=== PATIENT | female | born 1960 | race Caucasian/White ===

== ENCOUNTER → 2017-10-05 | Outpatient (CLI) | payer SELFPAY ==
[~2017-10-05] VITALS: Ht 167.6 cm; Wt 88.5 kg
[~2017-10-05] MED LIST: ARIP5TAB12 PO; ASPI-808 PO; ATOR40TA70 PO; CALC600T12 PO; CETI10TA20 PO; CYAN-23 PO; LORA1TAB PO; MULT-35 PO; OMEP40CA36 PO; VORT10TA PO
== END ==
LOC: PREOP 09:52
PROVIDERS: ATTEND Surgery
DX: Z01.818 Encounter for other preprocedural examination (principal); Z12.11 Encounter for screening for malignant neoplasm of colon

== ENCOUNTER 2017-10-12 09:29 | Day surgery (SDC) | payer BC ==
[~2017-10-12] VITALS: Ht 167.6 cm; Wt 88.5 kg
[2017-10-12] MEDS ORDERED: PROPOFOL INJECTION 50 ML IV ONE (09:33)
[2017-10-12] MEDS ORDERED: MIDAZOLAM 2 MG/2 ML (VERSED) VIAL ONE (09:33)
--- OUTSIDE RECORDS SUMMARY | 2017-10-12 09:33 | XMS REPORT ---
Author Author CLAYTON MACIEL [facility] DENTAL Address Unknown Care Team Providers Care Proofing Machine Operator Name Role Phone CLAYTON MACIEL Unavailable PROBLEMS Type Condition ICD9-CM Code [id number] Code Onset Dates Condition Status SNOMED Code Problem Major depressive disorder, recurrent, severe without psychotic features F33.2 Active 87415068 Problem Anxiety F41.9 Active 41621941 Problem Vitamin D deficiency E55.9 Active 78366072 Problem Iron deficiency anemia, unspecified iron deficiency D50.9 Active 09845672 Problem Gastroesophageal reflux disease, esophagitis presence not specified K21.9 Active 640737073 Problem Heel spur, right M77.31 Active 89282353 Problem Chronic prescription benzodiazepine use Z79.899 Active 519550862 Problem Mixed hyperlipidemia E78.2 Active 006138771 Problem Prediabetes R73.09 Active 2592251 Problem Primary osteoarthritis involving multiple joints M15.0 Active 664035315 Problem Menopause syndrome N95.1 Active 031829302 ALLERGIES Substance Reaction Event Type Date Status Sulfamethoxazole-Trimethoprim Unknown Drug Allergy Sep, Active SOCIAL HISTORY Never Assessed PLAN OF CARE Activity Details Follow Up 6 Months Reason:SELENA VITAL SIGNS Blood pressure systolic 123 mmHg 2016-10-01 Blood pressure diastolic 81 mmHg 2016-10-01 MEDICATIONS Medication Instructions Dosage Frequency Start Date End Date Duration Status Lorazepam 1 MG Orally 3 times a day 1 tablet as needed 8h Aug, 28 days Active Omeprazole 40 mg Orally Once a day 1 capsule 24h 90 days Active Orphenadrine Citrate Active Calcium 500 MG Orally Twice a day 1 tablet 12h Feb, Active Vitamin D3 1000 UNIT Orally 2 times a day 1 tablet 12h Active Trazodone HCl 100 MG TAKE ONE TABLET BY MOUTH AT BEDTIME 90 Active Aspirin 325 MG Orally Once a day 1 tablet 24h Active RESULTS No Results PROCEDURES Procedure Date Ordered Result Body Site COMP ORAL EVALUATION - NEW/EST PT Oct 01, 2016 IMMUNIZATIONS No Known Immunizations MEDICAL (GENERAL) HISTORY Type Description Date Medical History Hypertension Medical History IBS Medical History Arthritis Medical History Degenerative Disk Disease Medical History Depression Medical History Anxiety Medical History Anemia Surgical History carpal tunnel Surgical History gallbladder Surgical History hysterectomy -full Surgical History b union_ surgery both feet Surgical History shoulder surgery Hospitalization History Surgery(s) only
--- OUTSIDE RECORDS SUMMARY | 2017-10-12 09:33 | XMS REPORT ---
Author CLAYTON Reid eClinicalWorks Address Unknown Phone Unavailable Care Team Providers Care Airplane Navigator Name Role Phone CLAYTON MACIEL CP Unavailable Allergies, Adverse Reactions, Alerts Substance Reaction Event Type Sulfamethoxazole-Trimethoprim Info Not Available Drug Allergy Problems Problem Type Condition Code Onset Dates Condition Status Problem Prediabetes R73.09 Active Assessment Dental examination Z01.20 Active Problem Anxiety F41.9 Active Problem Major depressive disorder, recurrent, severe without psychotic features F33.2 Active Problem Mixed hyperlipidemia E78.2 Active Problem Gastroesophageal reflux disease, esophagitis presence not specified K21.9 Active Problem Iron deficiency anemia, unspecified iron deficiency D50.9 Active Problem Vitamin D deficiency E55.9 Active Problem Menopause syndrome N95.1 Active Medications Medication Code System Code Instructions Start Date End Date Status Dosage Omeprazole [facility] 12240729265 40 MG Orally 2 times a day before meal 1 capsule Calcium [facility] [address]-12 February 15, 2014 not defined Aspirin [facility] [address]-06 325 MG Orally Once a day 1 tablet Lorazepam [facility] [address]-28 1 MG October 10, 2014 take 1 tablet by Oral route 2 times per day PRN cetirizine [facility] [address]-66 10 mg Apr 24, 2014 1 tablet by Oral route 1 daily Vitamin D3 [facility] 30299033781 1000 UNIT TAKE TWO TABLETS BY MOUTH ONCE DAILY Multivitamin [facility] 94456-[address]53 October 17, 2014 1 tablet by Oral route 1 time per day Trazodone HCl [facility] 04094244459 100 MG TAKE ONE TABLET BY MOUTH AT BEDTIME Procedures Procedure Coding System Code Date PERIODIC ORAL EXAMINATION CPT-4 D0120 Sep 04, 2015 Vital Signs Date/Time: Sep 04, 2015 Blood Pressure Diastolic 68 mmHg Blood Pressure Systolic 112 mmHg Results No Known Results Summary Purpose eClinicalWorks Submission
--- OUTSIDE RECORDS SUMMARY | 2017-10-12 09:33 | XMS REPORT ---
Author Author TONI DAWSON [facility] eClinicalWorks Address Unknown Phone Unavailable Care Team Providers Care Emergency Veterinary Technician Name Role Phone TONI DAWSON CP Unavailable Allergies No Known Allergies Problems Problem Type Condition ICD-9 Code Onset Dates Condition Status Problem Pain in joint, pelvic region and thigh 719.45 Active Problem Anxiety state, unspecified 300.00 Active Problem Unspecified vitamin D deficiency 268.9 Active Problem Need for prophylactic vaccination and inoculation, Influenza V04.81 Active Problem Routine gynecological examination V72.31 Active Problem Chest pain, unspecified 786.50 Active Problem Special screening for malignant neoplasms, colon V76.51 Active Problem Major depressive disorder, single episode, unspecified 296.20 Active Problem Unspecified breast screening V76.10 Active Problem Other malaise and fatigue 780.79 Active Problem Abnormal involuntary movements 781.0 Active Problem Urinary tract infection, site not specified 599.0 Active Problem Esophageal reflux 530.81 Active Problem Major depressive disorder, recurrent episode, moderate 296.32 Active Problem Unspecified menopausal and postmenopausal disorder 627.9 Active Medications Medication Code System Code Instructions Start Date End Date Status Dosage Lorazepam [facility] [address]-85 1 MG October 10, 2014 take 1 tablet by Oral route 2 times per day PRN Results No Known Results Summary Purpose eClinicalWorks Submission
--- OUTSIDE RECORDS SUMMARY | 2017-10-12 09:33 | XMS REPORT ---
Author Author TONI DAWSON Organization [facility] Address [address] [place] [address] Care Team Providers Care Mixer Foam Rubber Name Role Phone TONI DAWSON Unavailable PROBLEMS Type Condition ICD9-CM Code [id number] Code Onset Dates Condition Status SNOMED Code Problem Major depressive disorder, recurrent, severe without psychotic features F33.2 Active 27984242 Problem Anxiety F41.9 Active 01879225 Problem Vitamin D deficiency E55.9 Active 29817672 Problem Iron deficiency anemia, unspecified iron deficiency D50.9 Active 90919682 Problem Gastroesophageal reflux disease, esophagitis presence not specified K21.9 Active 965888733 Problem Heel spur, right M77.31 Active 33107184 Problem Chronic prescription benzodiazepine use Z79.899 Active 656604448 Problem Mixed hyperlipidemia E78.2 Active 288660973 Problem Prediabetes R73.09 Active 9484924 Problem Primary osteoarthritis involving multiple joints M15.0 Active 523490582 Problem Menopause syndrome N95.1 Active 541361605 ALLERGIES No Information SOCIAL HISTORY Never Assessed PLAN OF CARE VITAL SIGNS MEDICATIONS Medication Instructions Dosage Frequency Start Date End Date Duration Status Lorazepam 1 MG Orally 3 times a day 1 tablet as needed 8h Aug, 28 days Active RESULTS No Results PROCEDURES No Known procedures IMMUNIZATIONS No Known Immunizations MEDICAL (GENERAL) HISTORY [...]
--- OUTSIDE RECORDS SUMMARY | 2017-10-12 09:34 | XMS REPORT ---
Author Author TONI DAWSON e[employer] Address Unknown Phone Unavailable Care Team Providers Care Retail Account Specialist Name Role Phone TONI DAWSON CP Unavailable Allergies, Adverse Reactions, Alerts Substance Reaction Event Type Sulfamethoxazole-Trimethoprim Info Not Available Drug Allergy Problems Problem Type Condition Code Onset Dates Condition Status Problem Prediabetes R73.09 Active Problem Gastroesophageal reflux disease, esophagitis presence not specified K21.9 Active Problem Iron deficiency anemia, unspecified iron deficiency D50.9 Active Problem Primary osteoarthritis involving multiple joints M15.0 Active Problem Mixed hyperlipidemia E78.2 Active Problem Chronic prescription benzodiazepine use Z79.899 Active Problem Vitamin D deficiency E55.9 Active Problem Menopause syndrome N95.1 Active Problem Anxiety F41.9 Active Problem Major depressive disorder, recurrent, severe without psychotic features F33.2 Active Assessment Gastroesophageal reflux disease, esophagitis presence not specified K21.9 Active Assessment Breast cancer screening Z12.39 Active Assessment Mixed hyperlipidemia E78.2 Active Assessment Anxiety F41.9 Active Assessment Colon cancer screening Z12.11 Active Assessment Iron deficiency anemia, unspecified iron deficiency D50.9 Active Assessment Urinary frequency R35.0 Active Assessment Chronic prescription benzodiazepine use Z79.899 Active Medications Medication Code System Code Instructions Start Date End Date Status Dosage Aspirin [facility] [address]-21 325 MG Orally Once a day 1 tablet Omeprazole [facility] [address]-52 40 mg Orally Once a day 1 capsule Vitamin D3 [facility] 43483-[address] 1000 UNIT Orally 2 times a day 1 tablet Trazodone HCl [facility] [address]-32 100 MG Orally Once a day 1 tablet at bedtime Lorazepam [facility] [address]-21 1 MG Orally 3 times a day October 10, 2014 1 tablet as needed Glucosamine [facility] [address]-09 500 MG Orally Once a day 1 capsule with a meal Orphenadrine Citrate [facility] [address]-13 not defined Calcium [facility] [address]-02 500 MG Orally Twice a day February 15, 2014 1 tablet Multivitamin [facility] 33818-58364 October 17, 2014 1 tablet by Oral route 1 time per day Procedures Procedure Coding System Code Date URINALYSIS, AUTO, W/O SCOPE CPT-4 84995 Jun 16, 2016 Office Visit, Est Pt., Level 3 CPT-4 60522 Jun 16, 2016 No Charge CPT-4 89775 Jun 16, 2016 Vital Signs Date/Time: Jun 16, 2016 Cardiac Monitoring Heart Rate 66 bpm Weight 203.2 lbs Height 67 in BMI 31.82 Index Blood Pressure Diastolic 84 mmHg Blood Pressure Systolic 133 mmHg Results Name Result Date Reference Range Unit Abnormality Flag UA W/CULTURE IF INDICATED (IN HOUSE) ----KAMRAN Negative 20160616 ----NIT Negative 20160616 ----SG 1.010 20160616 ----KET Negative [id number] ----GARCIA Negative [id number] ----GLU Negative [id number] ----Odor None [id number] ----pH 6.5 20160616 ----BLO Negative [id number] ----URO 0.2 20160616 ----Protein Negative [id number] ----Lot # [id number] ----Exp date [id number] ----Clarity Clear [id number] ----Color Yellow [id number] [employer] Summary Purpose eClinicalWorks Submission
--- OUTSIDE RECORDS SUMMARY | 2017-10-12 09:34 | XMS REPORT ---
Author Author TONI DAWSON [employer]Clinical[employer] Address Unknown Phone Unavailable Care Team Providers Care Senior Product Designer Name Role Phone TONI DAWSON Unavailable Allergies No Known Allergies Problems Problem Type Condition Code Onset Dates Condition Status Problem Prediabetes R73.09 Active Assessment Hyperlipidemia 272.4 Active Problem Anxiety F41.9 Active Problem Major depressive disorder, recurrent, severe without psychotic features F33.2 Active Problem Mixed hyperlipidemia E78.2 Active Problem Gastroesophageal reflux disease, esophagitis presence not specified K21.9 Active Problem Iron deficiency anemia, unspecified iron deficiency D50.9 Active Problem Vitamin D deficiency E55.9 Active Problem Menopause syndrome N95.1 Active Medications No Known Medications Procedures Procedure Coding System Code Date COMPREHEN METABOLIC PANEL CPT-4 36439 May 27, 2015 VENIPUNCT, ROUTINE* CPT-4 11276 May 27, 2015 LIPID PANEL CPT-4 16211 May 27, 2015 Results Name Result Date Reference Range Unit Abnormality Flag ROUTINE VENIPUNCTURE LIPID PANEL Summary Purpose eClinicalWorks Submission
--- OUTSIDE RECORDS SUMMARY | 2017-10-12 09:34 | XMS REPORT ---
Author Author LEEANNA ARITA Organization [employer]Clinical[employer] Address Unknown Phone Unavailable Care Team Providers Care Rotor Winder Name Role Phone LEEANNA ARITA CP Unavailable Allergies No Known Allergies Problems [...] Start Date End Date Status Dosage Lorazepam [facility] [address]-14 1 MG October 10, 2014 take 1 tablet by Oral route 2 times per day PRN Results No Known Results Summary Purpose eClinicalWorks Submission
--- OUTSIDE RECORDS SUMMARY | 2017-10-12 09:34 | XMS REPORT ---
Author Author TONI DAWSON Organization [facility] Address [address] [place] [address] Care Team Providers Care Lead Pressman Name Role Phone TONI DAWSON Unavailable PROBLEMS Type Condition ICD9-CM Code [id number] Code Onset Dates Condition Status SNOMED Code Problem Major depressive disorder, recurrent, severe without psychotic features F33.2 Active 19241368 Problem Anxiety F41.9 Active 43558378 Problem Vitamin D deficiency E55.9 Active 77544815 Problem Iron deficiency anemia, unspecified iron deficiency D50.9 Active 77632080 Problem Gastroesophageal reflux disease, esophagitis presence not specified K21.9 Active 725898936 Problem Heel spur, right M77.31 Active 49129678 Problem Chronic prescription benzodiazepine use Z79.899 Active 485472000 Problem Mixed hyperlipidemia E78.2 Active 655912469 Problem Prediabetes R73.09 Active 8055172 Problem Primary osteoarthritis involving multiple joints M15.0 Active 007906258 Problem Menopause syndrome N95.1 Active 478983072 ALLERGIES No Information SOCIAL HISTORY Never Assessed PLAN OF CARE VITAL SIGNS MEDICATIONS Medication Instructions Dosage Frequency Start Date End Date Duration Status Pravastatin Sodium 40 mg Orally Once a day 1 tablet 24h Nov, 30 day(s) Active RESULTS No Results PROCEDURES No Known [...]
--- OUTSIDE RECORDS SUMMARY | 2017-10-12 09:34 | XMS REPORT ---
Author Author GIULIA LEON [facility] eClinicalWorks Address Unknown Phone Unavailable Care Team Providers Care Printing Machine Mechanic Name Role Phone GIULIA LEON CP Unavailable Allergies, Adverse Reactions, Alerts Substance Reaction Event Type Sulfa (sulfonamide Antibiotics) Info Not Available Non Drug Allergy Problems Problem Type Condition ICD-9 Code Onset [...] tract infection, site not specified 599.0 Active Assessment Rash, skin 782.1 Active Problem Esophageal reflux 530.81 Active Problem Major depressive disorder, recurrent episode, moderate 296.32 Active Problem Unspecified menopausal and postmenopausal disorder 627.9 Active Medications Medication Code System Code Instructions Start Date End Date Status Dosage Lorazepam [facility] [address]-79 1 MG October 10, 2014 take 1 tablet by Oral route 2 times per day PRN Estradiol [facility] 69794250679 1 MG TAKE ONE TABLET BY MOUTH DAILY Multivitamin [facility] 62788-[address] October 17, 2014 1 tablet by Oral route 1 time per day Vitamin D3 [facility] 31179-67723 2,000 unit October 18, 2014 take 1 capsule by Oral route 1 time per day Trazodone HCl [facility] 00858197938 100 MG TAKE ONE TABLET BY MOUTH AT BEDTIME Calcium [facility] [address]-09 February 15, 2014 not defined Omeprazole [facility] [address]-39 40 MG Orally 2 times a day before meal Sep 1 capsule cetirizine [facility] [address]-58 10 mg Apr 24, 2014 1 tablet by Oral route 1 daily Cipro [facility] [address]-12 500 mg Aug 21, 2014 1 tablet by Oral route every 12 hours for 7 day(s) Nystatin-Triamcinolone [facility] [address]-55 746364-2.1 UNIT/GM-% Externally Twice a day Apr 09, 2015 May 07, 2015 1 application to affected area Methocarbamol [facility] 15498137135 750 MG TAKE ONE TABLET BY MOUTH EVERY 6 HOURS NEEDED FOR PAIN OR MUSCLE SPASM Procedures Procedure Coding System Code Date Office Visit, Est Pt., Level 3 CPT-4 77765 Apr 09, 2015 Vital Signs Date/Time: Apr 09, 2015 Temperature 97.3 F Weight 211.9 lbs Height 67 in BMI 33.18 Index Blood Pressure Diastolic 86 mmHg Blood Pressure Systolic 144 mmHg Cardiac Monitoring Heart Rate 76 bpm Results No Known Results Summary Purpose eClinicalWorks Submission
--- OUTSIDE RECORDS SUMMARY | 2017-10-12 09:34 | XMS REPORT ---
Author Author OTNI DAWSON Organization [facility] Address [address] [place] [address] Care Team Providers Care Vault Custodian Name Role Phone TONI DAWSON Unavailable PROBLEMS Type Condition ICD9-CM Code [id number] Code Onset Dates Condition Status SNOMED Code Problem Iron deficiency anemia, unspecified iron deficiency D50.9 Active 82289205 Problem Menopause syndrome N95.1 Active 727651082 Problem Gastroesophageal reflux disease, esophagitis presence not specified K21.9 Active 108074945 Problem Prediabetes R73.09 Active 3993746 Problem Chronic prescription benzodiazepine use Z79.899 Active 305214952 Problem Primary osteoarthritis involving multiple joints M15.0 Active 338212957 Problem Major depressive disorder, recurrent, severe without psychotic features F33.2 Active 11969394 Problem Vitamin D deficiency E55.9 Active 71808898 Problem Mixed hyperlipidemia E78.2 Active 854962569 Problem Anxiety F41.9 Active 49052964 ALLERGIES Unknown Allergies SOCIAL HISTORY No smoking Hx information available PLAN OF CARE VITAL SIGNS MEDICATIONS Medication Instructions Dosage Frequency Start Date End Date Duration Status Lorazepam 1 MG Orally 3 times a day 1 tablet as needed 8h Oct, 28 days Active RESULTS No Results PROCEDURES No Known procedures IMMUNIZATIONS No Known Immunizations
--- OUTSIDE RECORDS SUMMARY | 2017-10-12 09:34 | XMS REPORT ---
Author Author TONI DAWSON Organization [facility] Address [address] [place] [address] Care Team Providers Care Chuck Tender Name Role Phone TONI DAWSON Unavailable PROBLEMS Type Condition ICD9-CM Code [id number] Code Onset Dates Condition Status SNOMED Code Problem Major depressive disorder, recurrent, severe without psychotic features F33.2 Active 51277693 Problem Anxiety F41.9 Active 72678467 Problem Vitamin D deficiency E55.9 Active 62710252 Problem Iron deficiency anemia, unspecified iron deficiency D50.9 Active 77976991 Problem Gastroesophageal reflux disease, esophagitis presence not specified K21.9 Active 531007224 Problem Heel spur, right M77.31 Active 52062120 Problem Chronic prescription benzodiazepine use Z79.899 Active 076317038 Problem Mixed hyperlipidemia E78.2 Active 895948003 Problem Prediabetes R73.09 Active 3476594 Problem Primary osteoarthritis involving multiple joints M15.0 Active 354211237 Problem Menopause syndrome N95.1 Active 618709663 ALLERGIES No Information SOCIAL HISTORY Never Assessed [...]
--- OUTSIDE RECORDS SUMMARY | 2017-10-12 09:34 | XMS REPORT ---
Author Author TONI DAWSON eClinicalWorks Address Unknown Phone Unavailable Care Team Providers Care Road Design Draftsperson Name Role Phone TONI DAWSON Unavailable Allergies [...] recurrent, severe without psychotic features F33.2 Active Medications Medication Code System Code Instructions Start Date End Date Status Dosage Lorazepam [facility] [address]-66 1 MG October 10, 2014 take 1 tablet by Oral route 2 times per day PRN Results No Known Results Summary Purpose eClinicalWorks Submission
--- OUTSIDE RECORDS SUMMARY | 2017-10-12 09:34 | XMS REPORT ---
Author Author TONI DAWSON Organization [facility] Address [address] [place] [address] Care Team Providers Care Screw Machine Set Up Operator Name Role Phone TONI DAWSON Unavailable PROBLEMS Type Condition ICD9-CM Code RFR50-NX Code Onset Dates Condition Status SNOMED Code Problem Iron deficiency anemia, unspecified iron deficiency D50.9 Active 16810237 Problem Menopause syndrome N95.1 Active 853285852 Problem Gastroesophageal reflux disease, esophagitis presence not specified K21.9 Active 682103970 Problem Prediabetes R73.09 Active 3486304 Problem Chronic prescription benzodiazepine use Z79.899 Active 177998979 Problem Primary osteoarthritis involving multiple joints M15.0 Active 592139385 Problem Major depressive disorder, recurrent, severe without psychotic features F33.2 Active 56770330 Problem Vitamin D deficiency E55.9 Active 94586189 Problem Mixed hyperlipidemia E78.2 Active 345120514 Problem Anxiety F41.9 Active 44761399 ALLERGIES Unknown Allergies SOCIAL HISTORY No smoking Hx information available PLAN OF CARE VITAL SIGNS MEDICATIONS Medication Instructions Dosage Frequency Start Date End Date Duration Status Lorazepam 1 MG take 1 tablet by Oral route 2 times per day PRN Oct, 28 days Active RESULTS No Results PROCEDURES No Known procedures IMMUNIZATIONS No Known Immunizations
--- OUTSIDE RECORDS SUMMARY | 2017-10-12 09:34 | XMS REPORT ---
Author Author TONI DAWSON eClinicalWorks Address Unknown Phone Unavailable Care Team Providers Care Corduroy Cutter Operator Name Role Phone TONI DAWSON Unavailable Allergies [...] Start Date End Date Status Dosage Lorazepam [facility] [address]-17 1 MG October 10, 2014 take 1 tablet by Oral route 2 times per day PRN Results No Known Results Summary Purpose eClinicalWorks Submission
--- OUTSIDE RECORDS SUMMARY | 2017-10-12 09:34 | XMS REPORT ---
Author Author TONI DAWSON eClinicalWorks Address Unknown Phone Unavailable Care Team Providers Care Washhouse Hand Name Role Phone TONI DAWSON Unavailable Allergies [...] Start Date End Date Status Dosage Lorazepam [facility] [address]-93 1 MG Orally 3 times a day October 10, 2014 1 tablet as needed Results No Known Results Summary Purpose eClinicalWorks Submission
[2017-10-12] MEDS ORDERED: LACTATED RINGERS 1,000 ML IV STA (09:35)
--- OUTSIDE RECORDS SUMMARY | 2017-10-12 09:35 | XMS REPORT ---
Author Author TONI DAWSON [facility] eClinicalWorks Address Unknown Phone Unavailable Care Team Providers Care Extruding Press Adjuster Name Role Phone TONI DAWSON Unavailable Allergies No Known Allergies Problems Problem Type Condition Code Onset Dates Condition Status Problem Hyperlipidemia 272.4 Active Problem Major depressive disorder, single episode, unspecified 296.20 Active Problem Iron deficiency anemia 280.9 Active Problem Unspecified menopausal and postmenopausal disorder 627.9 Active Problem Esophageal reflux 530.81 Active Problem Anxiety state, unspecified 300.00 Active Problem Unspecified vitamin D deficiency 268.9 Active Medications Medication Code System Code Instructions Start Date End Date Status Dosage Lorazepam [facility] [address]-25 1 MG October 10, 2014 take 1 tablet by Oral route 2 times per day PRN Results No Known Results Summary Purpose eClinicalWorks Submission
--- OUTSIDE RECORDS SUMMARY | 2017-10-12 09:35 | XMS REPORT ---
Author ERAN Hammond eClinicalWorks Address Unknown Phone Unavailable Care Team Providers Care Fuselage Framer Name Role Phone ERAN ESTRADA CP Unavailable Allergies, Adverse Reactions, Alerts Substance Reaction Event Type Sulfamethoxazole-Trimethoprim Info Not Available Drug Allergy Problems Problem Type Condition Code Onset Dates Condition Status Problem Prediabetes R73.09 Active Assessment Encounter for dental examination Z01.20 Active Problem Anxiety F41.9 Active [...] Start Date End Date Status Dosage Lorazepam [facility] [address]-24 1 MG October 10, 2014 take 1 tablet by Oral route 2 times per day PRN Estradiol [facility] 19002738848 1 MG TAKE ONE TABLET BY MOUTH DAILY Aspirin [facility] [address]-73 325 MG Orally Once a day 1 tablet Calcium [facility] [address]-90 February 15, 2014 not defined Omeprazole [facility] 93146443552 40 MG Orally 2 times a day before meal 1 capsule Trazodone HCl [facility] 22032620100 100 MG TAKE ONE TABLET BY MOUTH AT BEDTIME cetirizine [facility] [address]-88 10 mg Apr 24, 2014 1 tablet by Oral route 1 daily Multivitamin [facility] 23[address] October 17, 2014 1 tablet by Oral route 1 time per day Paxil [facility] [address]-23 10 mg Jul 11, 2014 1 tablet by Oral route 1 time per day Vitamin D3 [facility] 87146540327 1000 UNIT TAKE TWO TABLETS BY MOUTH ONCE DAILY Procedures Procedure Coding System Code Date PROPHYLAXIS - ADULT CPT-4 D1110 Aug 05, 2015 BITEWINGS - FOUR FILMS CPT-4 D0274 Aug 05, 2015 Vital Signs Date/Time: Aug 05, 2015 Blood Pressure Diastolic 90 mmHg Blood Pressure Systolic 135 mmHg Results No Known Results Summary Purpose eClinicalWorks Submission
--- OUTSIDE RECORDS SUMMARY | 2017-10-12 09:35 | XMS REPORT ---
Author Author TONI DAWSON eClinicalWorks Address Unknown Phone Unavailable Care Team Providers Care Collection Systems Worker Name Role Phone TONI DAWSON CP Unavailable [...] Start Date End Date Status Dosage Lorazepam [facility] [address]-05 1 MG Orally 3 times a day October 10, 2014 1 tablet as needed Results No Known Results Summary Purpose eClinicalWorks Submission
--- OUTSIDE RECORDS SUMMARY | 2017-10-12 09:35 | XMS REPORT ---
Author Author SAIMA PRASAD [facility] eClinicalWorks Address Unknown Phone Unavailable Care Team Providers Care Gun Stocker Name Role Phone SAIMA PRASAD CP Unavailable Allergies No Known Allergies Problems [...] infection, site not specified 599.0 Active Assessment Dental examination V72.2 Active Problem Esophageal reflux 530.81 Active Problem Major depressive disorder, recurrent episode, moderate 296.32 Active Problem Unspecified menopausal and postmenopausal disorder 627.9 Active Medications No Known Medications Procedures Procedure Coding System Code Date Billing Notes on claim CPT-4 EC109 January 30, 2015 Results No Known Results Summary Purpose eClinicalWorks Submission
--- OUTSIDE RECORDS SUMMARY | 2017-10-12 09:35 | XMS REPORT ---
Author Author TONI DAWSON [facility] eClinicalWorks Address Unknown Phone Unavailable Care Team Providers Care Chemical Process Equipment Operator Name Role Phone TONI DAWSON Unavailable Allergies No Known Allergies Problems Problem Type Condition Code Onset Dates Condition Status Problem Prediabetes R73.09 Active Problem Anxiety F41.9 Active Problem Major [...] Date End Date Status Dosage Lorazepam [facility] [address]-41 1 MG October 10, 2014 take 1 tablet by Oral route 2 times per day PRN Results No Known Results Summary Purpose eClinicalWorks Submission
--- OUTSIDE RECORDS SUMMARY | 2017-10-12 09:35 | XMS REPORT ---
Author Author TONI DAWSON Organization [facility] Address [address] [place] [address] Care Team Providers Care Power Barker Name Role Phone TONI DAWSON Unavailable PROBLEMS Type Condition ICD9-CM Code [id number] Code Onset Dates Condition Status SNOMED Code Problem Major depressive disorder, recurrent, severe without psychotic features F33.2 Active 46966829 Problem Anxiety F41.9 Active 58720416 Problem Vitamin D deficiency E55.9 Active 30426806 Problem Iron deficiency anemia, unspecified iron deficiency D50.9 Active 49473697 Problem Gastroesophageal reflux disease, esophagitis presence not specified K21.9 Active 880444239 Problem Heel spur, right M77.31 Active 36525959 Problem Chronic prescription benzodiazepine use Z79.899 Active 419448718 Problem Mixed hyperlipidemia E78.2 Active 087312772 Problem Prediabetes R73.09 Active 1287614 Problem Primary osteoarthritis involving multiple joints M15.0 Active 705300934 Problem Menopause syndrome N95.1 Active 314719499 ALLERGIES Unknown Allergies SOCIAL HISTORY No smoking Hx information available PLAN OF CARE VITAL SIGNS MEDICATIONS Medication Instructions Dosage Frequency Start Date End Date Duration Status Omeprazole 40 mg Orally Once a day 1 capsule 24h 90 days Active Lorazepam 1 MG Orally 3 times a day 1 tablet as needed 8h Aug, 28 days Active RESULTS No Results PROCEDURES No Known procedures IMMUNIZATIONS No Known Immunizations
--- OUTSIDE RECORDS SUMMARY | 2017-10-12 09:35 | XMS REPORT ---
Author Author TONI DAWSON Organization [facility] Address [address] [place] [address] Care Team Providers Care Criminal Justice Program Director Name Role Phone TONI DAWSON Unavailable PROBLEMS Type Condition ICD9-CM Code [id number] Code Onset Dates Condition Status SNOMED Code Problem Iron deficiency anemia, unspecified iron deficiency D50.9 Active 14844518 Problem Menopause syndrome N95.1 Active 211374885 Problem Gastroesophageal reflux disease, esophagitis presence not specified K21.9 Active 376919206 Problem Prediabetes R73.09 Active 4362763 Problem Chronic prescription benzodiazepine use Z79.899 Active 103220832 Problem Primary osteoarthritis involving multiple joints M15.0 Active 178529797 Problem Major depressive disorder, recurrent, severe without psychotic features F33.2 Active 78194583 Problem Vitamin D deficiency E55.9 Active 80450445 Problem Mixed hyperlipidemia E78.2 Active 148340867 Problem Anxiety F41.9 Active 91912842 ALLERGIES Unknown Allergies SOCIAL HISTORY No smoking Hx information available PLAN OF CARE VITAL SIGNS MEDICATIONS Medication Instructions Dosage Frequency Start Date End Date Duration Status Lorazepam 1 MG take 1 tablet by Oral route 3 times per day PRN Oct, Active RESULTS No Results PROCEDURES No Known procedures IMMUNIZATIONS No Known Immunizations
--- OUTSIDE RECORDS SUMMARY | 2017-10-12 09:35 | XMS REPORT ---
Author Author TONI DAWSON Organization [facility] Address [address] [place] [address] Care Team Providers Care Senior Geotechnical Engineer Name Role Phone TONI DAWSON Unavailable PROBLEMS Type Condition ICD9-CM Code [id number] Code Onset Dates Condition Status SNOMED Code Problem Major depressive disorder, recurrent, severe without psychotic features F33.2 Active 02342636 Problem Anxiety F41.9 Active 31737405 Problem Vitamin D deficiency E55.9 Active 53239752 Problem Iron deficiency anemia, unspecified iron deficiency D50.9 Active 30389684 Problem Gastroesophageal reflux disease, esophagitis presence not specified K21.9 Active 525502366 Problem Heel spur, right M77.31 Active 28972217 Problem Chronic prescription benzodiazepine use Z79.899 Active 496007016 Problem Mixed hyperlipidemia E78.2 Active 089298751 Problem Prediabetes R73.09 Active 0283843 Problem Primary osteoarthritis involving multiple joints M15.0 Active 180427527 Problem Menopause syndrome N95.1 Active 800617602 ALLERGIES No Information SOCIAL HISTORY Never Assessed [...]
--- OUTSIDE RECORDS SUMMARY | 2017-10-12 09:35 | XMS REPORT ---
Author Author TONI DAWSON [facility] eClinicalWorks Address Unknown Phone Unavailable Care Team Providers Care Manager Recovery Name Role Phone TONI DAWSON Unavailable Allergies [...] Start Date End Date Status Dosage Lorazepam [facility] [address]-15 1 MG October 10, 2014 take 1 tablet by Oral route 2 times per day PRN Results No Known Results Summary Purpose eClinicalWorks Submission
--- OUTSIDE RECORDS SUMMARY | 2017-10-12 09:35 | XMS REPORT ---
Author Author MARCELA DURAN Organization [facility] Address [address] [place] [address] Phone Unavailable Care Team Providers Care Assembly Line Inspector Name Role Phone MARCELA DURAN Unavailable Unavailable PROBLEMS Type Condition ICD9-CM Code RNU67-XU Code Onset Dates Condition Status SNOMED Code Problem Major depressive disorder, recurrent, severe without psychotic features F33.2 Active 86221659 Problem Anxiety F41.9 Active 25950272 Problem Vitamin D deficiency E55.9 Active 25905664 Problem Iron deficiency anemia, unspecified iron deficiency D50.9 Active 24533892 Problem Gastroesophageal reflux disease, esophagitis presence not specified K21.9 Active 625363190 Problem Heel spur, right M77.31 Active 70730091 Problem Chronic prescription benzodiazepine use Z79.899 Active 026416147 Problem Mixed hyperlipidemia E78.2 Active 177251931 Problem Prediabetes R73.09 Active 8088257 Problem Primary osteoarthritis involving multiple joints M15.0 Active 606278746 Problem Menopause syndrome N95.1 Active 789883712 ALLERGIES Substance Reaction Event Type Date Status Sulfamethoxazole-Trimethoprim Unknown Drug Allergy Aug, Active SOCIAL HISTORY No smoking Hx information available PLAN OF CARE Activity Details Follow Up APPOINTMENT MADE FOR SELENA WITH NEARING Reason:SELENA WITH DR NEARING VITAL SIGNS MEDICATIONS Medication Instructions Dosage Frequency Start Date End Date Duration Status Trazodone HCl 100 MG TAKE ONE TABLET BY MOUTH AT BEDTIME 90 Active Orphenadrine Citrate Active Vitamin D3 1000 UNIT Orally 2 times a day 1 tablet 12h Active Lorazepam 1 MG Orally 3 times a day 1 tablet as needed 8h Oct, 28 days Active Omeprazole 40 mg Orally Once a day 1 capsule 24h Active Aspirin 325 MG Orally Once a day 1 tablet 24h Active Calcium 500 MG Orally Twice a day 1 tablet 12h Feb, Active RESULTS No Results PROCEDURES Procedure Date Ordered Related Diagnosis Body Site INTRAORL-PERIAPICAL 1 FILM 48222 Aug 17, 2016 INTRAORL-PERIAPICAL EA ADD FILM Aug 17, 2016 PROPHYLAXIS - ADULT Aug 17, 2016 INTRAORL-PERIAPICAL EA ADD FILM Aug 17, 2016 INTRAORL-PERIAPICAL EA ADD FILM Aug 17, 2016 BITEWINGS - FOUR FILMS Aug 17, 2016 INTRAORL-PERIAPICAL EA ADD FILM Aug 17, 2016 IMMUNIZATIONS No Known Immunizations
--- OUTSIDE RECORDS SUMMARY | 2017-10-12 09:36 | XMS REPORT | Continuity of Care Document ---
Author Author [facility] Organization [facility] Address Unknown Phone Unavailable Allergies Active Description Code Type Severity Reaction Onset Reported/Identified Relationship to Patient Clinical Status Yes Sulfa (Sulfonamide Antibiotics) Drug Allergy N/A N/A 02/15/2014 Yes No Known Drug Allergies [id number] Drug Allergy Unknown N/A 07/23/2014 Yes Sulfa (Sulfonamide Antibiotics) [id number] Drug Allergy Mild ANAPHYLAXIS Medications There is no data. Problems Date Dx Coded Attending Type Code Diagnosis Diagnosed By 11/22/2012 NICOLE BUTT MD, FIDEL Nagy 722.52 LUMB/LUMBOSAC DISC DEGEN 02/15/2014 TONI DAWSON MD N 268.9 UNSPECIFIED VITAMIN D DEFICIENCY 02/15/2014 TONI DAWSON MD N 296.20 MAJOR DEPRESSIVE AFFECTIVE DISORDER SINGLE EPISODE UNSPECIFIED DEGREE 02/15/2014 TONI DAWSON MD N 300.00 ANXIETY STATE UNSPECIFIED 02/15/2014 TONI DAWSON MD N 780.79 OTHER MALAISE AND FATIGUE 02/15/2014 TONI DAWSON MD N V76.51 COLON CANCER SCREENING 02/15/2014 TONI DAWSON MD N 268.9 UNSPECIFIED VITAMIN D DEFICIENCY 02/15/2014 TONI DAWSON MD N 296.20 MAJOR DEPRESSIVE AFFECTIVE DISORDER SINGLE EPISODE UNSPECIFIED DEGREE 02/15/2014 TONI DAWSON MD N 300.00 ANXIETY STATE UNSPECIFIED 02/15/2014 TONI DAWSON MD N 780.79 OTHER MALAISE AND FATIGUE 02/15/2014 TONI DAWSON MD V76.51 COLON CANCER SCREENING 02/15/2014 TONI DAWSON MD N 268.9 UNSPECIFIED VITAMIN D DEFICIENCY 02/15/2014 TONI DAWSON MD N 296.20 MAJOR DEPRESSIVE AFFECTIVE DISORDER SINGLE EPISODE UNSPECIFIED DEGREE 02/15/2014 TONI DAWSON MD N 300.00 ANXIETY STATE UNSPECIFIED 02/15/2014 TONI DAWSON MD 780.79 OTHER MALAISE AND FATIGUE 02/15/2014 TONI DAWSON MD V76.51 COLON CANCER SCREENING 02/15/2014 [facility], JENNY R 268.9 UNSPECIFIED VITAMIN D DEFICIENCY 02/15/2014 [facility], JENNY R 296.20 MAJOR DEPRESSIVE AFFECTIVE DISORDER SINGLE EPISODE UNSPECIFIED DEGREE 02/15/2014 [facility], JENNY R 300.00 ANXIETY STATE UNSPECIFIED 02/15/2014 [facility], JENNY R 780.79 OTHER MALAISE AND FATIGUE 02/15/2014 [facility], JENNY R V76.51 COLON CANCER SCREENING 02/15/2014 [employer], SAVITA A 268.9 UNSPECIFIED VITAMIN D DEFICIENCY 02/15/2014 [employer]ELIO [employer] SALES CONSULTANT, SAVITA A 296.20 MAJOR DEPRESSIVE AFFECTIVE DISORDER SINGLE EPISODE UNSPECIFIED DEGREE 02/15/2014 EVELIO [employer] SALES CONSULTANT, SAVITA A 300.00 ANXIETY STATE UNSPECIFIED 02/15/2014 EVELIO [employer] SALES CONSULTANT, SAVITA A 780.79 OTHER MALAISE AND FATIGUE 02/15/2014 EVELIO [employer]B SALES CONSULTANT, SAVITA A V76.51 COLON CANCER SCREENING 02/15/2014 [facility], JENNY R 268.9 UNSPECIFIED VITAMIN D DEFICIENCY 02/15/2014 [facility], JENNY R 296.20 MAJOR DEPRESSIVE AFFECTIVE DISORDER SINGLE EPISODE UNSPECIFIED DEGREE 02/15/2014 [facility], JENNY R 300.00 ANXIETY STATE UNSPECIFIED 02/15/2014 [facility], JENNY R 780.79 OTHER MALAISE AND FATIGUE 02/15/2014 [facility], JENNY R V76.51 COLON CANCER SCREENING 02/15/2014 TONI DAWSON MD N 268.9 UNSPECIFIED VITAMIN D DEFICIENCY 02/15/2014 TONI DAWSON MD N 296.20 MAJOR DEPRESSIVE AFFECTIVE DISORDER SINGLE EPISODE UNSPECIFIED DEGREE 02/15/2014 TONI DAWSON MD N 300.00 ANXIETY STATE UNSPECIFIED 02/15/2014 TONI DAWSON MD 780.79 OTHER MALAISE AND FATIGUE 02/15/2014 TONI DAWSON MD V76.51 COLON CANCER SCREENING 02/15/2014 [facility], HECTOR D 268.9 UNSPECIFIED VITAMIN D DEFICIENCY 02/15/2014 WH[facility] D[facility], HECTOR D 296.20 MAJOR DEPRESSIVE AFFECTIVE DISORDER SINGLE EPISODE UNSPECIFIED DEGREE 02/15/2014 [facility], HECTOR D 300.00 ANXIETY STATE UNSPECIFIED 02/15/2014 WH[facility] D[facility], HECTOR D 780.79 OTHER MALAISE AND FATIGUE 02/15/2014 WHITE DDS, HECTOR D V76.51 COLON CANCER SCREENING 02/15/2014 CASTILLO DO, TIGIST K 268.9 UNSPECIFIED VITAMIN D DEFICIENCY 02/15/2014 CASTILLO DO, TIGIST K 296.20 MAJOR DEPRESSIVE AFFECTIVE DISORDER SINGLE EPISODE UNSPECIFIED DEGREE 02/15/2014 CASTILLO DO, TIGIST K 300.00 ANXIETY STATE UNSPECIFIED 02/15/2014 CASTILLO DO, TIGIST K 780.79 OTHER MALAISE AND FATIGUE 02/15/2014 CASTILLO DO, TIGIST K V76.51 COLON CANCER SCREENING 02/15/2014 [facility], JENNY R 268.9 UNSPECIFIED VITAMIN D DEFICIENCY 02/15/2014 [facility], JENNY R 296.20 MAJOR DEPRESSIVE AFFECTIVE DISORDER SINGLE EPISODE UNSPECIFIED DEGREE 02/15/2014 [facility], JENNY R 300.00 ANXIETY STATE UNSPECIFIED 02/15/2014 [facility], JENNY R 780.79 OTHER MALAISE AND FATIGUE 02/15/2014 [facility], JENNY R V76.51 COLON CANCER SCREENING 02/15/2014 [facility], JENNY R 268.9 UNSPECIFIED VITAMIN D DEFICIENCY 02/15/2014 [facility], JENNY R 296.20 MAJOR DEPRESSIVE AFFECTIVE DISORDER SINGLE EPISODE UNSPECIFIED DEGREE 02/15/2014 [facility], JENNY R 300.00 ANXIETY STATE UNSPECIFIED 02/15/2014 [facility], JENNY R 780.79 OTHER MALAISE AND FATIGUE 02/15/2014 [facility], JENNY R V76.51 COLON CANCER SCREENING 04/24/2014 [facility], JENNY R 296.32 MO DEPRESSIVE RECURRENT MODERATE 04/24/2014 [facility], JENNY R 781.0 ABNORMAL INVOLUNTARY MOVEMENTS 04/24/2014 EVELIO BENITEZ, SAVITA A 296.32 MO DEPRESSIVE RECURRENT MODERATE 04/24/2014 [employer] SAL[employer] CONSULTANT, SAVITA A 781.0 ABNORMAL INVOLUNTARY MOVEMENTS 04/24/2014 [facility], JENNY R 296.32 MO DEPRESSIVE RECURRENT MODERATE 04/24/2014 [facility], JENNY R 781.0 ABNORMAL INVOLUNTARY MOVEMENTS 04/24/2014 SAMIR MCGUIRE, TONI N 296.32 MO DEPRESSIVE RECURRENT MODERATE 04/24/2014 SAMIR MCGUIRE, TONI [place] 781.0 ABNORMAL INVOLUNTARY MOVEMENTS 04/24/2014 WHITE DDS, HECTOR D 296.32 MO DEPRESSIVE RECURRENT MODERATE 04/24/2014 WHITE DDS, HECTOR D 781.0 ABNORMAL INVOLUNTARY MOVEMENTS 04/24/2014 CASTILLO DO, TIGIST K 296.32 MO DEPRESSIVE RECURRENT MODERATE 04/24/2014 CASTILLO DO, TIGIST K 781.0 ABNORMAL INVOLUNTARY MOVEMENTS 04/24/2014 [facility], JENNY R 296.32 MO DEPRESSIVE RECURRENT MODERATE 04/24/2014 [facility], JENNY R 781.0 ABNORMAL INVOLUNTARY MOVEMENTS 04/24/2014 [facility], JENNY R 296.32 MO DEPRESSIVE RECURRENT MODERATE 04/24/2014 [facility], JENNY R 781.0 ABNORMAL INVOLUNTARY MOVEMENTS 05/16/2014 [employer] SAL[employer] CONSULTANT, SAVITA A V04.81 FLU SHOT 05/16/2014 [employer]ELIO [employer] SALES CONSULTANT, SAVITA A V72.31 ASSISTANT BANQUET MANAGER EXAM, ROUTINE 05/16/2014 EVELIO [employer] SALES CONSULTANT, SAVITA A V76.10 BREAST CANCER SCREENING 05/16/2014 [facility], JENNY R V04.81 FLU SHOT 05/16/2014 [facility], JENNY R V72.31 ASSISTANT BANQUET MANAGER EXAM, ROUTINE 05/16/2014 [facility], JENNY R V76.10 BREAST CANCER SCREENING 05/16/2014 SAMIR MCGUIRE, TONI N V04.81 FLU SHOT 05/16/2014 TONI DAWSON MD V72.31 ASSISTANT BANQUET MANAGER EXAM, ROUTINE 05/16/2014 TONI DAWSON MD N V76.10 BREAST CANCER SCREENING 05/16/2014 WHITE DDS, HECTOR D V04.81 FLU SHOT 05/16/2014 WHITE DDS, HECTOR Nagy V72.31 ASSISTANT BANQUET MANAGER EXAM, ROUTINE 05/16/2014 WHITE DDS, HECTOR Nagy V76.10 BREAST CANCER SCREENING 05/16/2014 CASTILLO DO TIGIST K V04.81 FLU SHOT 05/16/2014 CASTILLO DOMARIELLEA K V72.31 ASSISTANT BANQUET MANAGER EXAM, ROUTINE 05/16/2014 CASTILLO DO, TIGIST K V76.10 BREAST CANCER SCREENING 05/16/2014 [facility], JENNY R V04.81 FLU SHOT 05/16/2014 [facility], JENNY R V72.31 ASSISTANT BANQUET MANAGER EXAM, ROUTINE 05/16/2014 [facility], JENNY R V76.10 BREAST CANCER SCREENING 05/16/2014 [facility], JENNY R V04.81 FLU SHOT 05/16/2014 [facility], JENNY R V72.31 ASSISTANT BANQUET MANAGER EXAM, ROUTINE 05/16/2014 [facility], JENNY R V76.10 BREAST CANCER SCREENING 07/11/2014 SAMIR MCGUIRE, TONI N 786.50 CHEST PAIN 07/11/2014 WHITE DDS, HECTOR D 786.50 CHEST PAIN 07/11/2014 CASTILLO DO, TIGIST K 786.50 CHEST PAIN 07/11/2014 [facility], JENNY R 786.50 CHEST PAIN 07/11/2014 [facility], JENNY R 786.50 CHEST PAIN 08/13/2014 SAVITA FRASER B2B SALES CONSULTANT Ot V76.12 08/13/2014 SAMIR MCGUIRE, TONI N Ot 786.50 08/13/2014 SAIMR MCGUIRE, TONI N Ot 786.50 08/13/2014 SAMIR MCGUIRE, TONI N Ot V64.3 08/13/2014 SAMIR MCGUIRE, TONI N Ot 786.50 08/13/2014 SAVITA FRASER B2B SALES CONSULTANT Ot V76.12 08/13/2014 SAMIR MCGUIRE, TONI N Ot 786.50 08/13/2014 SAMIR MCGUIRE, TNOI N Ot 786.50 08/13/2014 SAMIR MCGUIRE, TONI N Ot V64.3 08/13/2014 SAMIR MCGUIRE, TONI N Ot 786.50 08/21/2014 CASTILLO DO, TIGIST K 599.0 URINARY TRACT INFECTION 08/21/2014 [facility], JENNY R 599.0 URINARY TRACT INFECTION 08/21/2014 [facility], JENNY R 599.0 URINARY TRACT INFECTION 09/13/2014 SAVITA FRASER B2B SALES CONSULTANT Ot V76.12 09/13/2014 SAMIR MCGUIRE, TONI N Ot 786.50 09/13/2014 SAMIR MCGUIRE, TONI N Ot 786.50 09/13/2014 SAMIR MCGUIRE, TONI N Ot V64.3 09/13/2014 SAMIR MCGUIRE, TONI N Ot 786.50 09/13/2014 SAMIR MCGUIRE, TONI N Ot 786.50 09/20/2014 TONI DAWSON MD Ot 786.50 09/20/2014 TONI DAWSON MD Ot 786.50 10/17/2014 [facility], JENNY R 530.81 ESOPHAGEAL REFLUX 10/17/2014 [facility], JENNY R 627.9 UNSPECIFIED MENOPAUSAL AND POSTMENOPAUSAL DISORDER 10/17/2014 [facility], JENNY R 719.45 PAIN- HIP 10/06/2017 GEORGE COCHRAN DO Ot Z01.818 ENCOUNTER FOR OTHER PREPROCEDURAL EXAMIN 10/06/2017 GEORGE COCHRAN DO Ot Z12.11 ENCOUNTER FOR SCREENING FOR MALIGNANT NE Procedures Code Description [place] [address] X-RAY EXAM OF LOWER SPINE NICOLE BUTT MD, FIDEL [place] 11/22/2012 14866 CMP 02/15/2014 51176 LIPID PANEL 02/15/2014 02279 HEMOCCULT 02/15/2014 29184 VITAMIN D 25-HYDROXY (D2,D3 , TOTAL) 02/15/2014 80943 TSH 02/15/2014 68875 CBC 02/15/2014 IRGROUP IRON GROUP (Iron,TIBC, Ferritin) 02/15/2014 30540 HEMOCCULT 02/22/2014 85828 HEMOCCULT 02/22/2014 79162 PSYCH DIAGNOSTIC EVALUATION 04/24/2014 99167 MAMMOGRAM, SCREENING 05/16/2014 28758 PSYTX PT&/FAMILY 45 MINUTES 05/31/2014 30763 STRESS TEST, CARDIAC ( SPECIFY TYPE) 07/11/2014 33991 EKG, TRACING (IN-HOUSE) 07/11/2014 30650 STRESS TEST, CARDIAC ( SPECIFY TYPE) 07/11/2014 76476 UA W/ CULTURE IF INDICATED 08/21/2014 50446 CULTURE URINE 08/22/2014 42905 PSYTX PT&/FAMILY 45 MINUTES 09/19/2014 95187 PSYTX PT&/FAMILY 45 MINUTES 10/31/2014 Results There is no data. Encounters ACCT No. Visit Date/Time Discharge Status Pt. Type Provider Facility Loc./Unit Complaint [id number] 11/22/2012 12:37:00 11/22/2012 12:37:00 DIS Outpatient NICOLE BUTT MD, FIDEL [place] [facility] OTHER [id number] 10/05/2017 09:52:00 10/05/2017 23:59:59 CLS Outpatient GEORGE COCHRAN DO [facility] PREOP COLONOSCOPY [id number] 09/23/2017 11:00:00 09/23/2017 23:59:59 CLS Preadmit TONI DAWSON MD [facility] RAD Z12.31 SCREENING [id number] 07/26/2014 07:42:00 07/26/2014 23:59:59 CLS Outpatient TONI DAWSON MD [facility] CARD [id number] 07/23/2014 11:27:00 07/23/2014 23:59:59 CLS Outpatient TONI DAWSON MD [facility] CARD [id number] 07/17/2014 10:30:00 07/17/2014 23:59:59 CLS Outpatient TONI DAWSON MD [facility] CARD [id number] 05/18/2014 13:36:00 05/18/2014 23:59:59 CLS Outpatient SAVITA FRASER APRN [facility] RAD [id number] 10/12/2017 11:30:00 PEN Preadmit GEORGE COCHRAN DO [facility] ENDO SCREENING [id number] 10/31/2014 13:48:00 10/31/2014 23:59:59 CLS Outpatient JENNY MATTHEW [id number] 09/19/2014 08:56:00 09/19/2014 23:59:59 CLS Outpatient JENNY MATTHEW [id number] 08/21/2014 15:12:00 08/21/2014 23:59:59 CLS Outpatient TIGIST CASTILLO DO [id number] 07/31/2014 00:00:00 07/31/2014 23:59:59 CLS Outpatient HECTOR MARKS DDS [id number] 07/11/2014 09:22:00 07/11/2014 23:59:59 CLS Outpatient TONI DAWSON MD [id number] 05/31/2014 07:58:00 05/31/2014 23:59:59 CLS Outpatient JENNY MATTHEW [id number] 05/16/2014 10:47:00 05/16/2014 23:59:59 CLS Outpatient SAVITA FRASER APRN [id number] 04/24/2014 10:02:00 04/24/2014 23:59:59 [id number]/15/2014 10:54:00 03/15/2014 23:59:59 CLS Outpatient TONI DAWSON MD [id number] 02/22/2014 09:26:00 02/22/2014 23:59:59 CLS Outpatient TONI DAWSON MD [id number] 02/15/2014 08:50:00 02/15/2014 23:59:59 CLS Outpatient TONI DAWSON MD
[2017-10-12 09:51] VITALS: BP 130/86
--- NOTE | 2017-10-12 09:53 | Progress Note-Pre Operative ---
Pre-Operative Progress Note H&P Reviewed The H&P was reviewed, patient examined and no changes noted. Date Seen by Provider: Oct 12, 2017 Time Seen by Provider: 09:53 Date H&P Reviewed: Oct 12, 2017 Time H&P Reviewed: 09:53 Pre-Operative Diagnosis: screening colonoscopy GEORGE COCHRAN DO Oct 12, 2017 09:53
[2017-10-12 10:25] VITALS: BP 116/73
--- NOTE | 2017-10-12 10:33 | Progress Note-Post Operative ---
Post-Operative Progess Note Surgeon (s)/Information Technology Advisor (s) Surgeon GEORGE COCHRAN DO Information Technology Advisor: na Pre-Operative Diagnosis screening colonoscopy Post-Operative Diagnosis poor prep, sigmoid colon polyp Procedure & Operative Findings Date of Procedure 10/12/17 Procedure Performed/Findings flex sig c hot biopsy polypectomy Anesthesia Type per mda Estimated Blood Loss Estimated blood loss (mL): none Specimens/Packing Specimens Removed sigmoid polyp GEORGE COCHRAN DO Oct 12, 2017 10:33
--- NOTE | 2017-10-12 10:34 | Anesthesia-General Post-Op ---
MAC Patient Condition Mental Status/LOC: Same as Preop Cardiovascular: Satisfactory Nausea/Vomiting: Absent Respiratory: Satisfactory Pain: Controlled Complications: Absent Post Op Complications Complications None Follow Up Care/Instructions Patient Instructions None needed. Anesthesiology Discharge Order Discharge Order Patient is doing well, no complaints, stable vital signs, no apparent adverse anesthesia problems. YOSELIN DAVIS DO Oct 12, 2017 10:34
--- NOTE | 2017-10-12 10:44 | Discharge Inst-Simple/Standard ---
Discharge Inst-Standard Patient Instructions/Follow Up Plan of Care/Instructions/FU: 2 weeks Natividad Activity as Tolerated: Yes Discharge Diet: Regular Diet GEORGE COCHRAN DO Oct 12, 2017 10:44
[2017-10-12 10:50] VITALS: BP 119/60
[2017-10-12 11:04] VITALS: BP 119/60
--- NOTE | 2017-10-12 15:56 | OPERATIVE REPORT ---
DATE OF SERVICE: 10/12/2017 PREOPERATIVE DIAGNOSIS: Screening colonoscopy. POSTOPERATIVE DIAGNOSIS: Poor prep, sigmoid colon polyp. PROCEDURE: Flexible sigmoidoscopy with hot biopsy polypectomy. SURGEON: George Henson DO. ANESTHESIA: Per MDA. ESTIMATED BLOOD LOSS: None. COMPLICATIONS: None. INDICATIONS: The patient is a 57-year-old female here for screening colonoscopy. She understands risks and benefits of procedure and wished to proceed. Consent was signed on the chart. DESCRIPTION OF PROCEDURE: The patient was taken to the endoscopy suite, placed in left lateral recumbent position. Timeout was performed. Digital rectal exam was performed. There were no palpable polyps, masses or ulcerations. The scope was inserted in the rectum and began to be advanced. A lot of liquid stool present which then became more formed stool which was irrigated and suctioned. There was a polyp visualized within the sigmoid colon. Scope was slowly advanced encountering lot more stool. At this time, it was decided to abort due to the poor prep. Scope was then slowly retracted back. Lots of irrigation was used to irrigate the area where the polyp was and hot biopsy polypectomy was performed. Scope was then continuously retracted back. No polyps, masses or ulcerations within the remainder of the sigmoid colon and the rectum. Scope was slowly retracted until completely removed. RECOMMENDATIONS: The patient will do a 2-day prep. She will follow up in the office in 1 to 2 weeks to discuss this. She will be set up for a colonoscopy in the short term. Job ID: [id number] DocumentID: [id number] Dictated Date: 10/12/2017 10:59:39 Platform Loader Date: 10/12/2017 15:55:32 Dictated By: GEORGE HENSON DO
== END 2017-10-12 11:05 | disposition home or self-care (01) ==
LOC: ENDO 09:29
PROVIDERS: ATTEND Surgery
DX: Z12.11 Encounter for screening for malignant neoplasm of colon (principal); D12.5 Benign neoplasm of sigmoid colon; E78.5 Hyperlipidemia, unspecified; E66.9 Obesity, unspecified; Z68.31 Body mass index [BMI] 31.0-31.9, adult; Z87.891 Personal history of nicotine dependence; Z79.899 Other long term (current) drug therapy; Z79.02 Long term (current) use of antithrombotics/antiplatelets

== ENCOUNTER → 2018-06-15 | Outpatient (CLI) | payer BC ==
[~2018-06-15] MED LIST changes: +IOHEXOL 350 MG/ML 100 ML (OMNIPAQUE 350) VIAL IV ONE; +NS 250 ML (IVPB) BAG IV ONE; +RECEIVED CONTRAST (Hold Metformin) IV SCH
--- NOTE | 2018-06-15 11:14 | Diagnostic Imaging Report ---
PROCEDURE: CT abdomen and pelvis with and without contrast. TECHNIQUE: Precontrast acquisitions were acquired through the abdomen and pelvis. Multiple contiguous axial images were obtained through the abdomen and pelvis after the administration of intravenous contrast. INDICATION: Unintentional weight loss. Fatigue. Cough. Nausea. COMPARISON: None. FINDINGS: Included portions of lung bases show calcified granuloma within the posterior right lung base. Please note, dedicated CT of the chest was also performed and separately dictated same day. CT abdomen: The kidneys, adrenal glands, spleen, pancreas, and liver have a normal CT appearance. Small bowel loops are nondistended. Normal appendix is identified. There is no loculated fluid collection, free fluid, nor free air within the abdomen. No abnormal mesenteric or retroperitoneal adenopathy is seen. Bony structures show no acute abnormalities. CT pelvis: Urinary bladder is minimally distended, but is otherwise grossly unremarkable. There is no loculated fluid collection, free fluid, nor free air within the pelvis. No abnormal lymph nodes are identified. Bony structures show no acute abnormalities. IMPRESSION: No acute abnormalities are seen within the abdomen or pelvis. Dictated by: Dictated on workstation # [id number]
--- NOTE | 2018-06-15 11:39 | Diagnostic Imaging Report ---
PROCEDURE: CT chest without contrast. TECHNIQUE: Multiple contiguous axial images were obtained through the chest without the use of intravenous contrast. INDICATION: Cough. Fatigue. Abnormal weight loss. COMPARISON: None FINDINGS: Cardiomediastinal structures show normal heart size. There is no large pericardial effusion. There is mild scattered calcified aortic atherosclerosis. A few benign right hilar and mediastinal calcified lymph nodes are noted. Otherwise, no pathologically enlarged or morphologically abnormal adenopathy is seen within the mediastinum, nicholas, nor axilla on this noncontrast exam. Evaluation of lung aldrich demonstrates no focal consolidation, large effusion, nor pneumothorax. No suspicious pulmonary nodules or masses are identified. Note is made of benign calcified granuloma within the posterior right lower lobe. Bony structures show no acute abnormalities. No lytic or blastic osseous lesions are seen. Included portions of the upper abdomen are unremarkable as well. IMPRESSION: 1. Old granulomatous disease on the right. Otherwise, unremarkable CT of the chest. Dictated by: Dictated on workstation # [id number]
== END ==
LOC: RAD 09:20
PROVIDERS: ATTEND Family Medicine
DX: D71 Functional disorders of polymorphonuclear neutrophils (principal); R63.4 Abnormal weight loss; R11.0 Nausea; R53.83 Other fatigue; R05 Cough
CPT/HCPCS: 71250; 74178

== ENCOUNTER → 2018-06-24 | Outpatient (CLI) | payer BC ==
[~2018-06-24] MED LIST changes: -IOHEXOL 350 MG/ML 100 ML (OMNIPAQUE 350) VIAL IV ONE; -NS 250 ML (IVPB) BAG IV ONE; -RECEIVED CONTRAST (Hold Metformin) IV SCH
--- NOTE | 2018-06-24 09:16 | Diagnostic Imaging Report ---
PROCEDURE: US abdomen complete. TECHNIQUE: Multiple real-time grayscale images were obtained over the abdomen in various projections. INDICATION: Abdominal pain and nausea for 8 weeks. FINDINGS: The liver is normal in size at 14 cm. No discrete liver mass is identified. Portal vein is patent and shows normal direction of flow. The gallbladder is surgically absent. No biliary ductal dilatation is seen. The pancreas and spleen are unremarkable. Aorta is not aneurysmal. The right and left kidneys are unremarkable. There is no ascites. IMPRESSION: Status post cholecystectomy. No biliary ductal dilatation is seen. No liver mass is identified. Dictated by: Dictated on workstation # [id number]
== END ==
LOC: RAD 07:50
PROVIDERS: ATTEND Family Medicine
DX: R11.0 Nausea (principal); R10.9 Unspecified abdominal pain; R17 Unspecified jaundice; Z90.49 Acquired absence of other specified parts of digestive tract
CPT/HCPCS: 76700

== ENCOUNTER 2018-07-26 05:51 | Outpatient (CLI) | payer BC ==
[~2018-07-26] VITALS: Ht 167.6 cm; Wt 86.2 kg
[2018-07-28] MEDS ORDERED: SUCR1TAB36 PO (14:14)
[2018-07-28] MEDS ORDERED: PANT40TA2 PO (14:14)
== END 2018-07-26 14:31 ==
LOC: PREOP 05:51
PROVIDERS: ATTEND Surgery
DX: Z01.818 Encounter for other preprocedural examination (principal)

== ENCOUNTER 2018-07-28 11:44 | Day surgery (SDC) | payer BC ==
[~2018-07-28] VITALS: Ht 167.6 cm; Wt 86.2 kg
[2018-07-28] MEDS ORDERED: LACTATED RINGERS 1,000 ML IV ONE (11:56)
[2018-07-28] MEDS ORDERED: LACTATED RINGERS 1,000 ML IV STA (12:21)
[2018-07-28 12:23] VITALS: BP 134/96
[2018-07-28] MEDS ORDERED: HURRICAINE EXT TUBE (BENZOCAINE) XX PRN (12:30)
--- NOTE | 2018-07-28 13:17 | Progress Note-Pre Operative ---
Pre-Operative Progress Note H&P Reviewed The H&P was reviewed, patient examined and no changes noted. Date Seen by Provider: Jul 28, 2018 Time Seen by Provider: 13:16 Date H&P Reviewed: Jul 28, 2018 Time H&P Reviewed: 13:16 Pre-Operative Diagnosis: diffuse abdominal pain, gerd, hx h. pylori GEORGE COCHRAN DO Jul 28, 2018 13:17
[2018-07-28] MEDS ORDERED: MIDAZOLAM 2 MG/2 ML (VERSED) VIAL ONE (13:28)
[2018-07-28] MEDS ORDERED: proPOfol 200 MG/20 ML (DIPRIVAN) VIAL IV ONE (13:28)
[2018-07-28] MEDS ORDERED: PHENYLEPHRINE 100 MCG/ML 10 ML (ANESTHESIA) SYR ONE (13:44)
[2018-07-28 14:05] VITALS: BP 112/52
--- NOTE | 2018-07-28 14:12 | Progress Note-Post Operative ---
Post-Operative Progess Note Surgeon (s)/Railcar Switcher (s) Surgeon GEORGE COCHRAN DO Railcar Switcher: na Pre-Operative Diagnosis diffuse abdominal pain, gerd, hx h. pylori Post-Operative Diagnosis gastritis, hiatal hernia, normal colon Procedure & Operative Findings Date of Procedure 07/28/18 Procedure Performed/Findings egd c biopsies, colonoscopy Anesthesia Type per [facility] Estimated Blood Loss Estimated blood loss (mL): none Specimens/Packing Specimens Removed antrum, ge GEORGE COCHRAN DO Jul 28, 2018 14:12
[2018-07-28] MEDS ORDERED: SUCR1TAB36 PO (14:14)
[2018-07-28] MEDS ORDERED: PANT40TA2 PO (14:14)
--- NOTE | 2018-07-28 14:15 | Discharge Inst-Simple/Standard ---
Discharge Inst-Standard Discharge Medications New, Converted or Re-Newed RX: Transmitted to Pharmacy Patient Instructions/Follow Up Plan of Care/Instructions/FU: 2-3 weeks Natividad Activity as Tolerated: Yes Discharge Diet: Regular Diet GEORGE COCHRAN DO Jul 28, 2018 14:15
[2018-07-28 14:35] VITALS: BP 123/74
--- NOTE | 2018-07-28 15:01 | Anesthesia-General Post-Op ---
MAC Patient Condition Mental Status/LOC: Same as Preop Cardiovascular: Satisfactory Nausea/Vomiting: Absent Respiratory: Satisfactory Pain: Controlled Complications: Absent Post Op Complications Complications None Follow Up Care/Instructions Patient Instructions None needed. Anesthesiology Discharge Order Discharge Order Patient is doing well, no complaints, stable vital signs, no apparent adverse anesthesia problems. No complications reported per nursing. RONNELL MENDEZ CRNA Jul 28, 2018 15:01
[2018-07-28 15:03] VITALS: BP 123/74
--- NOTE | 2018-07-28 22:01 | OPERATIVE REPORT ---
DATE OF SERVICE: 07/28/2018 PREOPERATIVE DIAGNOSES: Diffuse abdominal pain, gastroesophageal reflux disease, history of Helicobacter pylori. POSTOPERATIVE DIAGNOSES: Gastritis, hiatal hernia, normal colon. PROCEDURE: EGD with biopsies, colonoscopy. SURGEON: George Henson DO ANESTHESIA: Per MDA. ESTIMATED BLOOD LOSS: None. COMPLICATIONS: None. INDICATIONS: The patient is a 58-year-old female who has been having diffuse abdominal pain. She has history of H. pylori and gastroesophageal reflux disease. The patient previous colonoscopy had poor prep, but she understands risks and benefits of procedures and wished to proceed with procedure. Consent was signed on the chart. DESCRIPTION OF PROCEDURE: The patient was taken to the endoscopy suite, placed in left lower recumbent position. Timeout was performed. Scope was inserted in the mouth, down the esophagus into the stomach and into the duodenum without difficulty. There were no polyps, mass or ulcerations within the duodenum. Scope was slowly retracted back into the stomach and was further insufflated. Erythematous changes consistent with gastritis was present. Biopsies of the antrum were obtained. Scope was retroflexed noting a small hiatal hernia. No other pathology. Scope was returned to its normal position, slowly withdrawn to the distal esophagus, which had some erythematous changes, no polyps, masses or ulcerations. Biopsy was obtained. Scope was then slowly retracted back until completely removed, noting no other pathology. Digital rectal exam was performed, which was a palpable polyps, masses or ulcerations. Scope was inserted in the rectum and advanced all the way to the cecum with minimal difficulty. Prep was adequate. Scope was then slowly retracted back. There were no polyps, mass or ulceration of the cecum, ascending, transverse, descending and sigmoid colon. Once in the rectum, scope was retroflexed noting no other pathology. Scope was returned to its normal position, slowly withdrawn until completely removed. The patient tolerated procedure well without any complications. She was taken to recovery room in stable condition. RECOMMENDATIONS: The patient is to stop omeprazole and start Protonix 40 mg daily. We will also start her on Carafate 1 gram four times a day. We will have her follow up in two to three weeks to see how she is doing and follow up on pathology. Job ID: [id number] DocumentID: [id number] Dictated Date: 07/28/2018 14:19:00 Warehouser Date: 07/28/2018 22:00:36 Dictated By: GEORGE HENSON DO
== END 2018-07-28 14:45 | disposition home or self-care (01) ==
LOC: ENDO 11:44
PROVIDERS: ATTEND Surgery
DX: K29.70 Gastritis, unspecified, without bleeding (principal); K21.9 Gastro-esophageal reflux disease without esophagitis; K44.9 Diaphragmatic hernia without obstruction or gangrene; R63.4 Abnormal weight loss; A04.8 Other specified bacterial intestinal infections; E78.5 Hyperlipidemia, unspecified; E66.9 Obesity, unspecified; Z68.30 Body mass index [BMI] 30.0-30.9, adult; Z79.82 Long term (current) use of aspirin; Z79.899 Other long term (current) drug therapy; Z87.891 Personal history of nicotine dependence

== ENCOUNTER → 2022-01-13 | Outpatient (CLI) | payer SELFPAY ==
[~2022-01-13] MED LIST changes: -CALC600T12 PO; +CALC600T91 PO; -CETI10TA20 PO; +CETI10TA49 PO; -OMEP40CA36 PO; +OMEP40CA6 PO; +PANT40TA2 PO; +SUCR1TAB36 PO
[2022-01-13 10:24] VITALS: BP 139/80
== END ==
LOC: CARD 10:00
PROVIDERS: ATTEND Family Medicine
DX: R07.89 Other chest pain (principal)
CPT/HCPCS: 93017

== ENCOUNTER → 2022-02-19 | Outpatient (CLI) | payer OTHER ==
[~2022-02-19] MED LIST changes: +CATHETER FLUSH 10 ML SYR IVP PRN
--- NOTE | 2022-02-20 08:51 | NUCLEAR STRESS TEST ---
TREADMILL NUCLEAR STRESS TEST Date of procedure: 02/19/2022. Primary care provider: Jada Skelton MD. Admitting physician: Elgin Vallecillo Jr., MD. INDICATION: Abnormal electrocardiogram. BASELINE ELECTROCARDIOGRAM: Sinus rhythm with borderline low voltage in the precordial leads. STRESS TEST PROCEDURE: The patient was exercised for a total of 3 minutes and 30 seconds of the standard Arie protocol achieving a maximum MET level of 5.2. The resting heart rate was 73 bpm and the peak heart rate was 149 bpm, which represents 93% of the maximum predicted heart rate. The resting blood pressure was 127/80 mmHg and the peak blood pressure was 186/76 mmHg. This represents a normal heart rate and a normal blood pressure response to exercise. The test was stopped due to fatigue. There was no chest discomfort during the test. There were isolated premature ventricular complexes during the test. There were no significant stress induced electrocardiogram changes. The patient exhibited fair exercise capacity for age. NUCLEAR PROCEDURE: The patient was administered 10.7 mCi of intravenous technetium 99m Tetrofosmin at rest for the rest images. The patient was subsequently administered 30.4 mCi of intravenous technetium 99 M Tetrofosmin at peak stress for the stress images. Following an appropriate wait after each injection, imaging was obtained. The images were subsequently processed and reformatted in the usual views. Gated imaging was obtained. The image quality was adequate with a mild degree of gastrointestinal attenuation artifact. CT attenuation correction was used as a adjunct to standard imaging. Both the corrected and uncorrected images were reviewed for interpretation. NUCLEAR RESULTS: There was normal myocardial perfusion in all segments without evidence of infarction or ischemia. There was normal left ventricular chamber size with an end-diastolic volume of 78 mL and an end-systolic volume of 29 mL. There was no evidence of transient ischemic dilatation. The TID ratio was 0.99. There was normal wall motion in all segments with a calculated ejection fraction of 62%. IMPRESSION: 1. Normal heart rate and blood pressure response to exercise. 2. There was no chest discomfort or electrocardiogram changes during the test. 3. There were isolated premature ventricular complexes during the test. 4. The patient exhibited fair exercise capacity for age at 3 minutes and 30 seconds of the Arie protocol. 5. There was normal myocardial perfusion in all segments without evidence of infarction or ischemia. 6. There was normal wall motion in all segments with a calculated ejection fraction of 62%. Certain portions of this document may have been dictated utilizing voice recognition technology. Inherent to this technology, typographical and grammatical errors may exist. As much as I am diligent to identify and correct these mistakes, some errors may remain in the document. ELGIN VALLECILLO JR, MD Feb 20, 2022 08:51
== END ==
LOC: CARD 10:06
PROVIDERS: ATTEND Internal Medicine Cardiovascular Disease
DX: I35.0 Nonrheumatic aortic (valve) stenosis (principal); R94.31 Abnormal electrocardiogram [ECG] [EKG]; I51.7 Cardiomegaly
CPT/HCPCS: 78452; 93017; 93306; A9502

== ENCOUNTER → 2022-09-11 | Outpatient (CLI) | payer OTHER ==
[~2022-09-11] MED LIST changes: -CATHETER FLUSH 10 ML SYR IVP PRN; +GADOTERATE 0.5 MMOL/ML (CLARISCAN) 20 ML VIAL IV ONE
--- NOTE | 2022-09-11 11:47 | Diagnostic Imaging Report ---
PROCEDURE: MR imaging of the brain with and without contrast. TECHNIQUE: Multiplanar, multisequence MR imaging of the brain was performed with and without contrast. INDICATION: Ataxia. Vertigo. COMPARISON: None FINDINGS: The ventricles and the cortical sulci are age appropriate. There is no midline shift or mass effect identified. There is no acute infarction. No intraparenchymal or extra-axial hemorrhage or fluid collection is identified. No other focal parenchymal abnormality is seen. There is no abnormal enhancement seen after the administration of gadolinium. No focal mass is present. The midline craniocervical anatomy is unremarkable. The major expected intracranial flow voids are seen. There are no focal calvarial lesions. Visualized paranasal sinuses are clear. The mastoid air cells are unremarkable. IMPRESSION: 1. No acute intracranial abnormalities. No acute infarction, hemorrhage or focal intra-axial mass. Dictated by: Dictated on workstation # [id number]
== END ==
LOC: RAD 09:11
PROVIDERS: ATTEND Family Medicine
DX: R26.89 Other abnormalities of gait and mobility (principal); R42 Dizziness and giddiness
CPT/HCPCS: 70553